=== PATIENT | female | born 1995 | race Two or more races ===

== ENCOUNTER 2024-06-19 18:50 | Emergency (ER) | payer BC, OTHER ==
[~2024-06-19] VITALS: Ht 162.6 cm; Wt 88.5 kg
[2024-06-19 19:25] LABS: Urine Bacteria None Seen /hpf (None Seen)
[2024-06-19 19:39] LABS: Basophils # (auto) 0.1 10 ^3/uL (0-0.2); Basophils % (auto) 0.6 % (0.0-2.0); Eosinophils # (auto) 0.1 10 ^3/uL (0-0.8); Eosinophils % (auto) 0.9 % (0.0-7.0); Hematocrit 40.4 % (36.0-46.0); Hemoglobin 13.8 g/dL (12.2-16.2); Lymphocytes # (auto) 3.5 10 ^3/uL (0.4-5.4); Lymphocytes % (auto) 24.6 % (10.0-50.0); Mean Corpuscular Hemoglobin 29.2 pg (28.0-32.0); Mean Corpuscular Hgb Conc. 34.1 g/dL (32.0-36.0); Mean Corpuscular Volume 85.7 fL (80.0-100.0); Monocytes # (auto) 0.8 10 ^3/uL (0-1.3); Monocytes % (auto) 5.7 % (0.0-12.0); Neutrophils # (auto) 9.7 10 ^3/uL (1.6-8.6); Neutrophils % (auto) 68.2 % (37.0-80.0); Red Blood Cells 4.71 10^6/uL (4.0-5.20); Red Cell Distribution Width 13.7 % (11.8-14.3); White Blood Cell 14.3 10^3/uL (4.4-10.8)
[2024-06-19 19:45] LABS: Urine Blood 3+ /uL (Negative); Urine Clarity Clear (Clear); Urine Color Light-Yellow (Yellow); Urine Mucus FEW (None Seen); Urine Protein, UAD Negative (Negative); Urine Specific Gravity 1.018 (1.001-1.035); Urine Urobilinogen Normal (Negative); Urine WBC 2 /hpf (0 - 5); Urine pH 5.5 (5.0-9.0)
[2024-06-19 19:49] LABS: Chloride 106 mmol/L (98-107); Sodium 137 mmol/L (136-145)
[2024-06-19 19:50] LABS: Anion Gap 9 (5-15); Calcium 9.6 mg/dL (8.7-10.4); Carbon Dioxide 22 mmol/L (20-30)
[2024-06-19 19:55] LABS: BUN/Creatinine Ratio 14.5 (10.0-20.0); Blood Urea Nitrogen 10 mg/dL (9-23); Glucose 101 mg/dL (74-106)
[2024-06-19 21:53] VITALS: BP 151/82; PULSE 85; RESP 15; TEMP 98.1; O2SAT 96
== END 2024-06-19 21:58 | disposition home or self-care (01) ==
LOC: ER 18:50
DX: O46.91 Antepartum hemorrhage, unspecified, first trimester (principal); N83.8 Other noninflammatory disorders of ovary, fallopian tube and broad ligament; Z3A.01 Less than 8 weeks gestation of pregnancy
CPT/HCPCS: 36415; 76801; 76817; 80048; 81001; 84702; 85025; 86850; 86900; 86901

== ENCOUNTER 2024-07-07 05:15 | Emergency (ER) | payer BC ==
[~2024-07-07] VITALS: Ht 162.6 cm; Wt 89.0 kg
[2024-07-07 06:16] LABS: Urine Bacteria None Seen /hpf (None Seen)
[2024-07-07 06:21] LABS: Basophils # (auto) 0 10 ^3/uL (0-0.2); Basophils % (auto) 0.4 % (0.0-2.0); Eosinophils # (auto) 0.1 10 ^3/uL (0-0.8); Eosinophils % (auto) 0.6 % (0.0-7.0); Hematocrit 40.6 % (36.0-46.0); Lymphocytes % (auto) 17.8 % (10.0-50.0); Mean Corpuscular Hemoglobin 29.7 pg (28.0-32.0); Mean Corpuscular Hgb Conc. 34.6 g/dL (32.0-36.0); Mean Corpuscular Volume 85.8 fL (80.0-100.0); Monocytes # (auto) 0.8 10 ^3/uL (0-1.3); Monocytes % (auto) 6.7 % (0.0-12.0); Neutrophils # (auto) 8.4 10 ^3/uL (1.6-8.6); Neutrophils % (auto) 74.5 % (37.0-80.0); Nucleated Red Blood Cells % 0.1 %; Platelet Count (auto) 280 10^3/uL (140-450); Red Blood Cells 4.73 10^6/uL (4.0-5.20); Red Cell Distribution Width 13.2 % (11.8-14.3); White Blood Cell 11.3 10^3/uL (4.4-10.8)
[2024-07-07 06:33] LABS: Chloride 106 mmol/L (98-107); Potassium 3.8 mmol/L (3.5-5.1); Sodium 138 mmol/L (136-145)
[2024-07-07 06:34] LABS: Anion Gap 8 (5-15); Calcium 9.4 mg/dL (8.7-10.4); Carbon Dioxide 24 mmol/L (20-30)
[2024-07-07 06:39] LABS: BUN/Creatinine Ratio 11.5 (10.0-20.0); Blood Urea Nitrogen 7 mg/dL (9-23); Glucose 90 mg/dL (74-106)
[2024-07-07 06:42] LABS: INR 0.94 (0.9-1.15); Partial Thromboplastin Time 24.7 SEC (24.5-34.5)
[2024-07-07 06:58] LABS: Urine Blood 1+ /uL (Negative); Urine Clarity Clear (Clear); Urine Color Yellow (Yellow); Urine Mucus FEW (None Seen); Urine Protein, UAD TRACE (Negative); Urine Specific Gravity 1.028 (1.001-1.035); Urine Urobilinogen Normal (Negative); Urine WBC 1 /hpf (0 - 5); Urine pH 5.5 (5.0-9.0)
[2024-07-07 07:52] VITALS: PULSE 102; RESP 16; O2SAT 99
[2024-07-07 08:00] VITALS: TEMP 98.2
[2024-07-07] MEDS: CEPHALEXIN 250 MG CAP PO ONE (08:52)
[2024-07-07 09:00] VITALS: BP 148/43; PULSE 87; RESP 16; O2SAT 100
== END 2024-07-07 08:43 | disposition home or self-care (01) ==
LOC: ER 05:15
DX: O20.8 Other hemorrhage in early pregnancy (principal); O26.891 Other specified pregnancy related conditions, first trimester; R10.2 Pelvic and perineal pain; Z3A.09 9 weeks gestation of pregnancy
CPT/HCPCS: 36415; 76801; 80048; 81001; 84702; 85025; 85610; 85730